=== PATIENT | female | born 1980 | race Hispanic/Latino ===

== ENCOUNTER 2018-03-17 05:26 | Inpatient (IN) | payer BC ==
[2018-03-16 15:51] LABS: Urine Appearance CLOUDY; Urine Bilirubin NEGATIVE (NEG); Urine Blood NEGATIVE (NEG); Urine Color YELLOW; Urine Glucose NEGATIVE (NEG); Urine Protein NEGATIVE (NEG); Urine Specific Gravity 1.015 (1.005-1.030); Urine Urobilinogen 0.2 mg/dL (0.2-1.0); Urine pH 6.5 (5.0-7.0)
[2018-03-16 15:56] LABS: RPR Titer ND
[2018-03-16 16:00] LABS: Urine Microscopic Reflex ORDER UMIC
[2018-03-16 16:01] LABS: Absolute Lymphocytes (CBC) 1.7 K/uL (0.7-4.9); Absolute Monocytes 0.5 K/uL (0.1-1.3); Absolute Neutrophil 10.1 K/uL (1.8-8.0); Basophils % 0.2 % (0-1.3); Eosinophils % 0.4 % (0-4.4); Lymphocytes % 13.4 % (15.3-44.8); MCH 24.9 pg (27.0-35.0); MCV 77.5 fL (80-100); MPV 9.4 fL (7.6-11.3); Monocytes % 4.2 % (3.3-12.3); RBC Red Blood Cell Count 4.25 M/uL (3.86-4.86)
[2018-03-16 17:03] LABS: Urine Bacteria 20-50 /HPF (<20); Urine RBC <5 /HPF (NONE SEEN)
[2018-03-16 17:04] LABS: Urine Culture Reflex Order REFLEXED
[2018-03-16 21:02] LABS: RPR (Rapid Plasma Reagin) NON-REACT (NON-REACT)
[~2018-03-17 05:26] MED LIST: CEFAZOLIN/SWI 2gm 2 GM/20 ML SYR IV SCH; Ringers Lactate 1,000 ML IV PRN; Ringers Lactate 1,000 ML IV SCH
[2018-03-17] MEDS ORDERED: NA CIT/CITRIC AC 30 ML ORAL UDC PO ONE (05:59)
[2018-03-17] MEDS ORDERED: FAMOTIDINE 20 MG/2 ML VIAL IV ONE (05:59)
[2018-03-17] MEDS ORDERED: METOCLOPRAMIDE 10 MG/2mL INJ IV ONE (06:00)
[2018-03-17] MEDS ORDERED: NS 0.9% VIAL 10 ML ONE (06:50)
[2018-03-17] MEDS ORDERED: OXYTOCIN 10 UNIT/ML ML IV ONE (06:50)
[2018-03-17] MEDS ORDERED: EPHEDRINE SULF 50 MG/ML SYR ONE (06:50)
[2018-03-17] MEDS ORDERED: MORPHINE SULFATE/PF 1 MG/ML (10 ML AMP) ONE (06:50)
[2018-03-17] MEDS ORDERED: BUPIVACAINE 0.75% (PF) 2 ML SP ONE (07:09)
[2018-03-17 07:27] VITALS: BMI 36.1
[2018-03-17] MEDS ORDERED: CARBOPROST TROME 250 MCG/ML IM ONE (07:49)
[2018-03-17] MEDS ORDERED: MIDAZOLAM HCL 2 MG/2 ML INJ ONE (07:58)
[2018-03-17] MEDS ORDERED: ONDANSETRON HCL 40 MG/20 ML VIAL ONE (07:58)
--- NOTE | 2018-03-17 08:24 | PREOPHP ---
Date of Admission: 03/17/2018 History Of Present Illness: Ms. Corral is a 37-year-old, , [place] female, 3, para 2-0-0-2, now at 39+ weeks gestation. She has been followed by me during this with complica tions of advanced maternal age, anemia, prior section with a single layer locked closure. B ecause of this, she is scheduled for repeat section, possible tubal ligation. They do not w ant any more children after this one and if the lower segment is extremely thin, we will consider doi ng a tubal ligation to decrease her risk of future complications. If this is not seen her wi ll obtain a vasectomy. Past Medical History: Please see records. Family History: Please see records. Review of Systems: She reports no recent cough, cold, fever, or chills. No recent nausea or vomiting. She denies any b reast lumps. Her has been active. She denies urine symptoms or bowel issues. Physical Examination: General: Reveals pleasant female. Neck: Supple without adenopathy or thyromegaly. Lungs: Clear. Cardiac: Regular rate and rhythm without murmurs. Breasts: Not examined. Abdomen: Estimated weight of approximately 8 pounds. Pelvic: Not performed. Extremities: No cyanosis, clubbing, probably 1+ lower extremity edema. Impression: Thirty-nine week , prior section, single layer locked closure, advance d maternal age, requested sterilization. Plan: The patient will undergo repeat section. Risks and benefits are discussed. She has signed operative permit in my presence. BRAYDEN/KHUSHBU Voice ID: [id number]
[2018-03-17] MEDS ORDERED: Oxycodone HCl/Acetaminophen 1 TAB TAB PO PRN ×2 (08:32)
[2018-03-17] MEDS ORDERED: CARBOPROST TROME 250 MCG/ML IM PRN (08:32)
[2018-03-17] MEDS ORDERED: ONDANSETRON 4 MG (ODT) TAB PO PRN (08:32)
[2018-03-17] MEDS ORDERED: KETOROLAC 30 MG/ML INJ IV PRN (08:32)
--- NOTE | 2018-03-17 08:35 | P.BOP ---
Preoperative diagnosis: 39 week , AMA, prior , requested sterilization Postoperative diagnosis: same, thin lower uterine segment Primary procedure: , delivery viable female Secondary procedure: BTL Estimated blood loss: Less than 1000 Specimen: placenta Anesthesia: Spinal Complications: None Drain(s): Urinary catheter Transferred to: Other (277) Condition: Good
--- NOTE | 2018-03-17 14:51 | OP ---
Surgeon: Johnathon Joe MD Preoperative Diagnoses: A 39 week , prior section with single layer locking closur e, requested permanent sterilization. Procedures: Spinal block anesthesia, repeat section, delivery of viable macrosomic female i nfant, and bilateral tubal ligation. Postoperative Diagnoses: A 39 week , prior section with single layer locking closu re, requested permanent sterilization, macrosomia. Description Of Procedure: After satisfactory level of spinal block anesthesia was obtained, the tommy ent was prepped and draped in the usual fashion for abdominal surgery with Polk catheter in place an d after having received 2 g of Ancef for antibiotic prophylaxis. A Pfannenstiel skin incision was ma de, carried down to the fascia. The fascia was incised with a combination of sharp and blunt dissect ion. This was from the underlying rectus muscles. These were divided in the midline. Marisol toneum entered and the muscles were split vertically. Bladder flap was developed after incising the vesicouterine peritoneum and bladder blade placed. The lower uterine segment was extremely thin. In cision was made. A 10 pound female infant, 8 and 9 was delivered in vertex presentation. The cord was clamped, cut, and the infant placed in a warmer. Cord blood was obtained. The placenta was manually removed. The cervix was dilated from above with a ring clamp, which was passed from the op erative field. The uterus was closed in 2 layers of running suture utilizing 0 Vicryl. The second l julián used to imbricate and reinforced with the thinned lower uterine segment. Because of this and he r requested sterilization, the tubal ligation was performed bilaterally by creating an avascular wind ow in the mesosalpinx with bipolar cautery. Two sutures of 0 chromic were used proximally and distal ly to a 1 cm segment of tube, which was then excised. The uterus was returned to peritoneal cavity, which was cleaned off amniotic fluid, debris, and blood clot. The bladder flap had been reapproximat ed with a running suture of 3-0 Vicryl. The rectus muscles were approximated in midline with simple sutures of 0 Vicryl. The fascia was closed with a running suture of #1 Vicryl from either margin to the middle in a running nonlocking fashion. The subcutaneous tissue was approximated with subcutaneo us interrupted sutures of 3-0 Vicryl, subdermal suture of 3-0 Vicryl, and subcuticular suture of 4-0 Monocryl. Estimated total blood loss was approximately 1000 cc. She had mild uterine atony, which w as treated with Hemabate. The patient tolerated all procedures well, was taken to the recovery room in satisfactory condition with sponge and needle counts correct x2. Waiter Surgeon: Jorge A Hull M.D. Anesthesia: Nidia Norris CRNA and Dr. Paredes. BRAYDEN/KHUSHBU Voice ID: [id number] Report ID: [id number]
[2018-03-17] MEDS: OXYTOCIN/LR 20 UNIT/1,000 ML BAG IV SCH (21:02)
[2018-03-18 04:45] LABS: Absolute Lymphocytes (CBC) 1.1 K/uL (0.7-4.9); Absolute Monocytes 0.6 K/uL (0.1-1.3); Absolute Neutrophil 8.5 K/uL (1.8-8.0); Basophils % 0.2 % (0-1.3); Eosinophils % 0.3 % (0-4.4); Hematocrit 23.1 % (36.0-45.0); MCH 25.9 pg (27.0-35.0); MCV 78.3 fL (80-100); Monocytes % 5.9 % (3.3-12.3); RBC Red Blood Cell Count 2.95 M/uL (3.86-4.86)
--- NOTE | 2018-03-18 07:48 | P.PN ---
Date of Service: 03/18/18 S-No complaint except gas distention O-Afeb, vs stable, 03/23 po h/h, abdomen, mild gas distention, bandage dry A-Post op anemia, secondary to atony P-Ambulate with assistance, mylicon.
[2018-03-18] MEDS: SIMETHICONE 80 MG TAB PO SCH ×2 (08:39→14:00)
[2018-03-18] MEDS ORDERED: IBUPROFEN 200 MG TAB PO ONE (08:39)
[2018-03-18] MEDS: IBUPROFEN 400 MG TAB PO PRN (08:40)
[2018-03-18] MEDS: OXYTOCIN/LR 20 UNIT/1,000 ML BAG IV SCH ×2 (09:00→17:00)
[2018-03-18 09:17] VITALS: O2SAT 98
[2018-03-18] MEDS ORDERED: Tdap (Diph,Pertuss(Acell),Tet Vac) 0.5 ML SYR IMVAC ONE (12:26)
[2018-03-19 02:56] LABS: HBsAG Nonreactive (Nonreactive)
[2018-03-19] MEDS: IBUPROFEN 400 MG TAB PO PRN (03:00)
[2018-03-19] MEDS: SIMETHICONE 80 MG TAB PO SCH (03:10)
[2018-03-19 07:54] VITALS: BP 134/81; TEMP 97.6
--- NOTE | 2018-03-19 14:30 | DS ---
Date of Discharge: 03/19/2018 Ms. Corral is a 37-year-old, , [place] female, 3, para 2-0-0-2, at term, who underwe nt repeat section with delivery of 10 pound female infant by spinal block anesthesia. Posto perative course was complicated by uterine atony treated with Hemabate. She was dismissed on the sec ond postoperative day, ambulatory, on a select diet with routine post- section activity restr ictions and to be seen back in my office in 2 weeks. Lab work included an admission hemoglobin and h ematocrit of 10.6 and 33.0, dismissal 7.6, 23.1. She was to continue taking her iron and vi tamins. She was Rh positive blood type, rubella immune. Urine culture seen did indicate a probable contaminated specimen and she was probably adequately treated in any case by 2 g of Ancef used for martínez rgical prophylaxis. She was dismissed with a prescription for Tylenol No.3 #15 for pain relief with the usual post- section activity restrictions. BRAYDEN/KHUSHBU Voice ID: [id number] Report ID: [id number]
== END 2018-03-19 09:35 | disposition home or self-care (01) | DRG 766 ==
LOC: 2ND-WC 05:26
PROVIDERS: ADMIT Specialist; ATTEND Specialist
PROC: 0UB70ZZ Excision of Bilateral Fallopian Tubes, Open Approach (ICD-10-PCS; 2018-03-17)
PROC: 10D00Z1 Extraction of Products of Conception, Low, Open Approach (ICD-10-PCS; principal; 2018-03-17 07:30)
DX: O34.211 Maternal care for low transverse scar from previous cesarean delivery (principal); N85.8 Other specified noninflammatory disorders of uterus; O36.63X0 Maternal care for excessive fetal growth, third trimester, not applicable or unspecified; O99.02 Anemia complicating childbirth; D64.9 Anemia, unspecified; O75.89 Other specified complications of labor and delivery; Z3A.39 39 weeks gestation of pregnancy; Z37.0 Single live birth; Z30.2 Encounter for sterilization; O94 Sequelae of complication of pregnancy, childbirth, and the puerperium; Z28.21 Immunization not carried out because of patient refusal
CPT/HCPCS: 36415; 81003; 81015; 85025; 86592; 86850; 86900; 86901; 87086; 87088; 87340; 88302; 88307; J0690; J2250; J2405; J2590; J2765